=== PATIENT | female | born 1960 | race Caucasian/White ===

== ENCOUNTER 2022-01-02 09:48 | Emergency (ER) | payer OTHER, BC, SELFPAY ==
--- NOTE | 2022-01-02 10:02 | ED.ANIMALBIT ---
HPI - Animal Bite General Chief Complaint: Animal Bite Stated Complaint: dog bite x 2 Time Seen by Provider: 01/02/22 09:52 History of Present Illness HPI narrative: 61-year-old female presents emergency room. She was out walking today when she was attacked by 2 dogs. She thinks only one of them literally bit her. They were mid pit bulls weighing about 60 pounds each. She is got a laceration across the top of the left hand with a small puncture wound. She is got a laceration in the posterior aspect behind her left knee with puncture wounds there. She think she is up-to-date on her tetanus status. She sustained no other injuries. She began screaming and a gentleman who lives close by and states that he knows the dogs and call the doctor they came over to him. He called the police. Related Data Allergies Allergy/AdvReac Type Severity Reaction Status Date / Time erythromycin base AdvReac Mild Nausea Verified 10/31/17 15:56 Review of Systems Review of Systems: CONSTITUTIONAL: Denies fever, chills, or sweats. EYES: Denies visual changes, redness, or discharge. ENT: Denies rhinorrhea, congestion, sore throat, or otalgia. CARDIOVASCULAR: Denies chest pain, palpitations, or edema. RESPIRATORY: Denies cough or dyspnea. GASTROINTESTINAL: Denies abdominal pain, nausea, vomiting, or diarrhea. GENITOURINARY: Denies dysuria or hematuria. SKIN: Denies rash or itching. MUSCULOSKELETAL: Denies back pain, joint pain, or myalgia. Complaining of pain to the left hand and behind the left knee NEUROLOGIC: Denies headache, numbness, or weakness. PSYCHIATRIC: Denies anxiety or depression. PMFSH Past Medical History Medical History (Updated 01/02/22 @ 11:07 by Malachi Escobar DO) No pertinent past medical history Social History Social History (Updated 01/02/22 @ 10:03 by Malachi Escobar DO) Living arrangements: with family Exam Narrative: APPEARANCE: Well appearing, no pain or distress, well-nourished. Head normocephalic and atraumatic. EYES: PERRLA/EOMI, conjunctivae very clear. NOSE: Normal with no drainage EARS:TMS clear Sol Shipley, with good light reflex. THROAT: Pharynx clear, no exudate. NECK: Supple. No adenopathy, no masses. RESPIRATORY: Airway patent, respirations nonlabored. Clear to auscultation bilaterally, no rales, rhonchi, wheezing. CARDIOVASCULAR: Regular rate and rhythm without murmurs, rubs, or gallops. ABDOMINAL: Soft, nontender, nondistended, no hepatosplenomegaly Musculoskeletal: Moves all extremities. Strength/ROM intact, No edema, No calf tenderness. On the dorsal aspect of the left wrist has about a 2 cm superficial laceration. Just lateral that is 1 small puncture wound. There is no bone tenderness. Have full range of motion. Motor and sensory noted to be intact. Posterior aspect of her left leg behind the knee she is got a gaping laceration approximately 3 cm in length with 3 puncture wounds adjacent to that. No active bleeding. Full range of motion of her knee. NEURO: Alert. Cranial nerves II through XII intact. Normal gait. Good coordination. Nonfocal examination. SKIN:: Warm, dry. Normal Color PSYCHIATRIC: Normal affect/mood, normal interaction Course Vital Signs Vital signs: Vital Signs Temperature 97.8 F 01/02/22 10:05 Pulse Rate 93 01/02/22 10:05 Respiratory Rate 16 01/02/22 10:05 Blood Pressure 149/89 H 01/02/22 10:05 Pulse Oximetry 99 01/02/22 10:05 Temperature 97.8 F 01/02/22 10:05 Pulse Rate 93 01/02/22 10:05 Respiratory Rate 16 01/02/22 10:05 Blood Pressure 149/89 H 01/02/22 10:05 Pulse Oximetry 99 01/02/22 10:05 Procedures Laceration Laceration 1: ====== Skin Level ====== ====== Subcutaneous Layer ====== ====== Muscle Layer ====== ====== Tendon Layer ====== Dressing: Laceration to the dorsal aspect of the right hand superficial approximately 2 cm in length. It was cleaned and 2 Steri-Strips were applied
--- NOTE | 2022-01-02 10:04 | PC.NURSE ---
Wounds irrigated with normal saline.
[2022-01-02 10:05] VITALS: BP 149/89; PULSE 93; RESP 16; TEMP 36.6; O2SAT 99
[2022-01-02] MEDS: TETANUS/DIPHTHERIA TOXOIDS ADSORB 0.5 ML VIAL (*BKC) IM (11:22)
[2022-01-02 11:49] VITALS: BP 131/76; PULSE 78; RESP 18; O2SAT 99
== END 2022-01-02 11:51 | disposition home or self-care (01) ==
PROVIDERS: Emergency Provider Emergency Medicine
DX: S81.852A Open bite, left lower leg, initial encounter (principal); S60.572A Other superficial bite of hand of left hand, initial encounter; Z23 Encounter for immunization; W54.0XXA Bitten by dog, initial encounter
CPT/HCPCS: 12001; 12002; 90471; 90714; 99283

== ENCOUNTER 2023-08-11 11:40 | Emergency (ER) | payer BC, SELFPAY ==
--- NOTE | 2023-08-11 11:45 | ED.URI ---
HPI - URI/Sore Throat General Chief Complaint: Upper Respiratory Infection Stated Complaint: sorethroat,cough Time Seen by Provider: 08/11/23 12:10 Source: patient and RN notes reviewed Mode of arrival: ambulatory Limitations: no limitations History of Present Illness HPI Narrative: 62-year-old female presents with concern for cough and sore throat for 2 weeks. She reports ear pressure reports she is taking [id number] medications with minimal relief. She denies fevers MD elicited complaint: cough and sore throat Related Data Home Medications Medication Instructions Recorded Confirmed albuterol sulfate 90 mcg/actuation inhalation 08/11/23 aerosol inhaler gabapentin 800 mg tablet mg 08/11/23 levothyroxine 25 mcg tablet mcg 08/11/23 progesterone micronized 100 mg mg 08/11/23 capsule venlafaxine 37.5 mg mg PO 08/11/23 capsule,extended release 24 hr Allergies Allergy/AdvReac Type Severity Reaction Status Date / Time erythromycin base AdvReac Mild Nausea Verified 08/11/23 11:55 Review of Systems Review of Systems: CONSTITUTIONAL: Denies malaise, chills, sweats, or fever. EYES: Denies visual changes, redness, or discharge. ENT: Reports otalgia and sore throat. CARDIOVASCULAR: Denies chest pain, palpitations, or edema. RESPIRATORY: Reports cough. Denies dyspnea. GASTROINTESTINAL: Denies abdominal pain, nausea, vomiting, diarrhea SKIN: Denies rash or itching. MUSCULOSKELETAL: Denies myalgia. NEUROLOGIC: Denies headache. All systems reviewed & are unremarkable except as noted in HPI and below PMFSH Past Medical History Medical History (Updated 08/11/23 @ 12:19 by Cyndi Aldrich NP) No pertinent past medical history Social History Social History (Updated 01/02/22 @ 10:03 by Malachi Escobar, DO) Living arrangements: with family Comments At time of signature, agree with nursing past medical, surgical, social and family history. There is no relevant family history pertinent to the presenting complaint Exam Narrative: GENERAL: Well-appearing, well-nourished, and in no acute distress. HEAD: Normocephalic EYES: PERRLA, conjunctivae clear ENT: Nares clear, turbinates edematous and erythematous, clear discharge. Mucous membranes moist. TM pearly thomas with dull light reflex bilaterally; no tragal tenderness. Oropharynx not erythematous without lesions. Tonsils not enlarged and without exudate, no drooling, no hoarseness, no trismus, uvula midline. NECK: Supple. No lymphadenopathy CHEST: Clear to auscultation, breath sounds equal. No wheezing, rhonchi, rales, or stridor. No respiratory distress, speaks in full sentences. HEART: Regular rate and rhythm. No murmur heard. SKIN: Warm, dry, no rash. NEURO: Alert and oriented x3. PSYCH: Normal mood and affect Course Course Emergency Course: Patient is aware of diagnosis, understands and agrees to treatment plan. Anticipatory guidance given. Patient agrees to follow-up as directed and is aware of reasons to seek care at the emergency department. Portions of this record may have been created with voice recognition software Level of Care: Express Care Visit Vital Signs Vital signs: Reviewed. MDM - URI/Sore Throat MDM Narrative Medical decision making narrative: Differential diagnosis considered: Pierre virus, strep pharyngitis, allergic rhinitis, upper respiratory tract infection, sinusitis, rhinosinusitis, nasopharyngitis. viral pharyngitis, otitis media, otitis externa, pneumonia, bronchitis, viral cough syndrome, viral syndrome, and influenza. Exam findings show no acute concerns or changes; patient is non-toxic appearing and is in no distress. Patient is appropriate for outpatient treatment and follow-up. Lab Data Attestation: I reviewed the patient's lab results. Critical Care Time Critical Care Time Critical Care Time: No Discharge Plan Discharge Clinical Impression: Bronchitis Patient Disposition: Home, Self-Care
[2023-08-11 11:56] VITALS: BP 146/74; PULSE 91; RESP 18; TEMP 36.3; O2SAT 100
== END 2023-08-11 12:23 | disposition home or self-care (01) ==
PROVIDERS: Emergency Provider Nurse Practitioner
DX: J40 Bronchitis, not specified as acute or chronic (principal)
CPT/HCPCS: 87081; 87880; 99213; G0463